=== PATIENT | male | born 1970 | race American Indian/Alaskan Native ===

== ENCOUNTER 2021-08-21 10:53 | Emergency (ER) | payer SELFPAY ==
--- NOTE | 2021-08-21 11:47 | Emergency Department Report ---
HPI - General Chief Complaint: Extremity Problem,Nontraumatic Time Seen by Provider: 08/21/21 11:31 - HPI HPI: Room 32 The patient is a 51-year-old male present with chief complaint of right wrist pain. Patient states for the past 6 weeks he has had pain in his right wrist whenever he moves/uses his right thumb. Patient states he does not recall any specific injuries but he awakened 1 day with this pain. Patient states he has been taking Tylenol with minimal relief. ED Past Medical Hx - Past Medical History Hx Hypertension: Yes Hx Pulmonary Embolism: Yes (On Lovenox) Hx HIV: Yes (Normal CD4, undetectable viral load July 2021) - Surgical History Past Surgical History?: No - Family History Family history: no significant - Social History Smoking Status: Unknown if ever smoked Substance Use Type: None - Medications Home Medications: Home Medications Medication Instructions Recorded Confirmed Last Taken Type traMADoL [Ultram] 50 mg PO Q6HR PRN #14 tablet 08/21/21 Unknown Rx ED Review of Systems ROS: Stated complaint: RGHT HAND PAIN [id number] Other details as noted in HPI Constitutional: no symptoms reported Eyes: denies: eye pain ENT: denies: throat pain Respiratory: no symptoms reported Cardiovascular: denies: chest pain Endocrine: no symptoms reported Gastrointestinal: denies: abdominal pain Genitourinary: denies: dysuria Musculoskeletal: arthralgia Neurological: denies: headache Physical Exam - Physical Exam Vital Signs: Vital Signs 08/21/21 11:06 Temperature 98.8 F Pulse Rate 96 H Respiratory 14 Rate Blood Pressure 134/84 [Left] O2 Sat by Pulse 100 Oximetry Physical Exam: GENERAL: The patient is well-developed well-nourished male sitting in chair not appearing to be in acute distress. [] HEENT: Normocephalic. Atraumatic. Extraocular motions are intact. Patient has moist mucous membranes. NECK: Supple. Trachea midline CHEST/LUNGS: Clear to auscultation. There is no respiratory distress noted. HEART/CARDIOVASCULAR: Regular. There is no tachycardia. 2+ right radial pulse SKIN: There is no rash. There is no edema. There is no diaphoresis. NEURO: The patient is awake, alert, and oriented. The patient is cooperative. The patient has no focal neurologic deficits. The patient has normal speech MUSCULOSKELETAL: Positive Je maneuver with the right hand. There is no evidence of acute injury. ED Course Vital Signs 08/21/21 11:06 Temperature 98.8 F Pulse Rate 96 H Respiratory 14 Rate Blood Pressure 134/84 [Left] O2 Sat by Pulse 100 Oximetry ED Medical Decision Making - Radiology Data Radiology results: report reviewed (Right wrist x-ray), image reviewed (Right wrist x-ray) interpreted by me: Right wrist x-ray-no acute fracture, no dislocation [facility] [address] [place] [address] XRay Report Signed Patient: RENATA HARDIN MR #: [id number] : 1970 Acct:[id number] Age/Sex: 51 / M ADM Date: 08/21/21 Loc: ED Attending Dr: Ordering Physician: ASHVIN SANDOVAL MD Date of Service: 08/21/21 Procedure(s): XR wrist 3+V RT Accession Number(s): [id number] cc: ASHVIN SANDOVAL MD Fluoro Time In Minutes: RIGHT WRIST 4 VIEWS 1155 INDICATION: Pain PAIN FOR WEEKS IN RIGHT WRIST COMPARISON: None available. FINDINGS: No fractures or dislocations are seen. Only slight lateral arthritic changes are noted. Signer Name: Misael Dave MD Signed: 08/21/2021 12:10 PM Workstation Name: [id number] Transcribed By: GJ Dictated By: Misael Dave MD Electronically Authenticated By: Misael Dave MD Signed Date/Time: 08/21/21 1210 DD/ 1209 TD/TT: Print Cancel - Differential Diagnosis De Quervain's tenosynovitis, occult fracture Critical care attestation.: If time is entered above; I have spent that time in minutes in the direct care of this critically ill patient, excluding procedure time. ED Disposition Clinical Impression: De Quervain's tenosynovitis, right Disposition: 01 HOME / SELF CARE / HOMELESS Is pt being admited?: No Does the pt Need Aspirin: No Condition: Stable Instructions: De Quervain's Tenosynovitis Additional Instructions: Return to the emergency department should you develop worsening symptoms, inability to tolerate food or liquids, high fever or any other concerns Prescriptions: traMADoL [Ultram] 50 mg PO Q6HR PRN #14 tablet PRN Reason: Pain Referrals: VIVIAN COLEY MD [Staff Physician] - 3-5 Days (Dr. Coley is an orthopedic surgeon. Please follow-up with him for further evaluation) Time of Disposition: 12:32
--- NOTE | 2021-08-21 12:14 | XRay Report ---
RIGHT WRIST 4 VIEWS 1155 INDICATION: Pain PAIN FOR WEEKS IN RIGHT WRIST COMPARISON: None available. FINDINGS: No fractures or dislocations are seen. Only slight lateral arthritic changes are noted. Signer Name: Misael Dave MD Signed: 08/21/2021 12:10 PM Workstation Name: [id number]
[2021-08-21 13:40] VITALS: BP 121/76
== END 2021-08-21 13:39 | disposition home or self-care (01) ==
LOC: ED 10:53
DX: M65.4 Radial styloid tenosynovitis [de Quervain] (principal); I10 Essential (primary) hypertension
CPT/HCPCS: 99283